=== PATIENT | male | born 1970 | race Caucasian/White ===

== ENCOUNTER 2024-05-15 14:30 | Outpatient (RCR) | payer BC, SELFPAY | END 2024-07-16 15:51 | disposition home or self-care (01) | PROVIDERS: Visit Provider Orthopaedic Surgery Sports Medicine | DX: S93.401A Sprain of unspecified ligament of right ankle, initial encounter (principal); Z51.89 Encounter for other specified aftercare | CPT/HCPCS: 97110; 97140; 97161 ==

== ENCOUNTER 2024-10-20 07:06 | Outpatient (CLI) | payer BC, SELFPAY ==
--- NOTE | 2024-10-20 07:15 | MR_ITS ---
[address] [address] Phone:?[phone] Fax:?[phone] Referring Physician Information: Sammy Chu M.D. [id number] [id number] Phone:?[phone] Fax:?[phone] Patient:?Benjie Aguilar Morris.B:?1970 Sex:?Male Phone:? [facility] MRN:?[id number] Exam Date:?10/20/2024 EXAM: MRI of the RIGHT ANKLE, without contrast CLINICAL: Right ankle sprain injury. Evaluate for calcaneofibular ligament tear. COMPARISONS: X-rays dated 04/21/2024. TECHNICAL: Multiplanar multisequence MRI of the right ankle was obtained. SEDATION: None. CONTRAST: None. FINDINGS: Achilles tendon: No tendinopathy or tear. No retrocalcaneal bursitis. Plantar fascia: Unremarkable. Tarsal tunnel: No masses identified. Sinus Tarsi:?Normal fat within the sinus tarsi without significant scar, synovitis, or mass lesion. Ligaments: Anterior talofibular: Mild irregularity of the ligament consistent with sequelae of prior sprain injury, without complete disruption. Calcaneofibular: There is increased signal/partial tearing of the ligament consistent with sequelae of prior sprain injury, without complete disruption. Posterior talofibular: No injury. Syndesmotic:?The anterior inferior and posterior inferior tibiofibular ligaments are intact. Deltoid: The deep and superficial components of the deltoid ligament are intact. Spring: Intact. Bifurcate and calcaneocuboid: Intact. Flexor tendons: Posterior tibial: Normal. Flexor digitorum longus: Normal. Flexor hallucis longus: Normal. Peroneus brevis and longus: There is marked fluid about the peroneal longus and brevis tendons. There is moderate tendinosis and mild partial tearing of the peroneal brevis tendon as it courses distal to the distal fibula with severe tendinosis and mild partial interstitial tearing of the tendon as it courses along and distal to the anterior calcaneus extending to the base of the fifth metatarsal attachment. There is minimal tendinosis/partial interstitial tearing of the peroneal longus tendon as it courses distal to the distal fibula on axial series 4 images 22-23. No significant peroneal tendon displacement. Extensor tendons: Tibialis anterior: Normal. Extensor hallucis longus: Normal. Extensor digitorum longus: Normal. Joints/Osseous structures: No joint effusion, osteochondral lesion or significant osseous changes of arthrosis. No bone marrow edema, fracture, subluxation or dislocation. IMPRESSION: 1. Moderate tendinosis and mild partial tearing of the peroneal brevis tendon as it courses distal to the distal fibula with advanced tendinosis and mild partial interstitial tearing of the tendon as it courses along and distal to the anterior calcaneus. Minimal tendinosis/partial interstitial tearing of the peroneal longus tendon as it courses distal to the distal fibula. There is marked tenosynovitis involving the peroneal tendons. 2. Sequelae of prior sprain injuries involving the anterior talofibular and calcaneofibular ligaments. 3. No additional internal derangement identified. JCZ Electronically signed on 10/23/2024 4:04:00 PM by Baljeet Vale D.O.
== END 2024-10-20 07:07 | disposition home or self-care (01) ==
LOC: MRI 07:07
PROVIDERS: Visit Provider Orthopaedic Surgery Sports Medicine
DX: S93.411D Sprain of calcaneofibular ligament of right ankle, subsequent encounter (principal)
CPT/HCPCS: 73721